=== PATIENT | male | born 1995 | race Caucasian/White ===

== ENCOUNTER 2017-11-11 02:44 | Emergency (ER) | payer OTHER ==
[~2017-11-11] VITALS: Ht 180.3 cm; Wt 81.7 kg
[2017-11-11 02:45] VITALS: BP 154/103
--- NOTE | 2017-11-11 03:03 | NUR ---
PT BIB [facility] C/O PRE-BOOK HIGH BP, HIGH PULSE NEED ER MD MONZON FOR MEDICAL CLEAR/OK TO BOOK, TO BE ABLE TO RETURN TO [facility]. PT DENIES ANY PAIN 0/10. HX BIPOLAR, HEP C, LIVER PT STS " I DO NOT HAVE TO TAKE ANY MEDICATIONS". PT DENIES N/V/D; SKIN IS INTACT, FLUSHED/WET/CLAMMY; AAOX4, PERRL, WITH EVEN AND STEADY GAIT; LUNGS CLEAR BL, BREATHING UNLABORED; HR EVEN AND REGULAR, BL PERIPHERAL PULSES PRESENT; BS ACTIVE X4, NO TENDERNESS TO PALPATION. PT DENIES ANY FEVER, CP, SOB, OR COUGH AT THIS TIME; PT STATES 0/10 PAIN AT THIS TIME; VSS; PATIENT POSITIONED FOR COMFORT; HOB ELEVATED; BEDRAILS UP X2; BED DOWN.
[2017-11-11 03:49] VITALS: BP 133/80
--- NOTE | 2017-11-11 03:50 | NUR ---
Patient discharged with v/s stable. Written and verbal after care instructions given and explained. Patient alert, oriented and verbalized understanding of instructions. Police with in custody. All questions addressed prior to discharge. ID band removed. Patient advised to follow up with PMD.NO Rx given. Patient educated on indication of medication including possible reaction and side effects. Opportunity to ask questions provided and answered.
== END 2017-11-11 03:49 ==
LOC: EDBD 02:44 → MED 02:44
DX: Z02.89 Encounter for other administrative examinations (principal); F15.10 Other stimulant abuse, uncomplicated
CPT/HCPCS: 99283